=== PATIENT | female | born 1990 | race Caucasian/White ===

== ENCOUNTER 2021-02-01 19:45 | Emergency (ER) | payer OTHER ==
[2021-02-01 20:24] LABS: BASOPHIL 0.5 % (0-2); EOSINOPHIL 1.5 % (0-5); HCT 45.8 % (37.0-47.0); HGB 14.9 g/dl (12.5-16.0); LYMPHOCYTE 29.4 % (15-48); MCHC 32.5 g/dL (32.0-36.0); MCV 89.3 fL (78.0-100.0); MPV 8.1 fL (6.0-9.5); NEUTROPHIL 64.1 % (41-80); NRBC 0; PLT 369 K/uL (150-400); RBC 5.13 M/uL (4.20-5.40); RDW 13.9 % (11.5-14.0); WBC 15.4 K/uL (4.0-10.5)
[2021-02-01 20:35] LABS: BILIRUBIN NEGATIVE (NEGATIVE); BLOOD 3+ Ery/uL (NEGATIVE); CLARITY CLOUDY (CLEAR); COLOR YELLOW (YELLOW); GLUCOSE (U) NORMAL (NORMAL); LEUKOCYTES NEGATIVE Leu/uL (NEGATIVE); NITRITE POSITIVE (NEGATIVE); PROTEIN 2+ mg/dL (NEGATIVE); SPECIFIC GRAVITY >=1.030 (1.001-1.030); UROBILINOGEN 0.2 mg/dL (0.2-1.0)
[2021-02-01 20:36] LABS: BUN/CREAT RATIO (CALC) 18.3 RATIO; CREATININE 0.82 mg/dL (0.51-0.95); POTASSIUM 3.7 mmol/L (3.5-5.1)
[2021-02-01 20:38] LABS: AMORPHOUS URATES CRYSTALS MODERATE; BACTERIA 3+; URINARY RBC 20-50
[2021-02-01] MEDS ORDERED: FLOMAX0.4 MG PO (21:41)
[2021-02-01] MEDS ORDERED: CIPRO500 MG PO (21:41)
[2021-02-01] MEDS ORDERED: NORCO 5-325 TA1 EACH PO (21:41)
== END 2021-02-01 22:10 | disposition home or self-care (01) ==
LOC: FER 19:45
PROVIDERS: Nurse Practitioner Family
DX: N13.2 Hydronephrosis with renal and ureteral calculous obstruction (principal); I10 Essential (primary) hypertension
CPT/HCPCS: 36415; 80048; 81001; 85025; J0696; J1885; J2405; J7030